=== PATIENT | male | born 1985 | race Caucasian/White ===

== ENCOUNTER → 2018-05-05 16:46 | Outpatient (CLI) | payer OTHER, SELFPAY ==
--- NOTE | 2018-05-05 16:50 | DI.RAD.S_ITS ---
PROCEDURE: XR SHOULDER RT MIN 2V INDICATIONS: right shoulder instability and pain s/p GLF TECHNIQUE: 3 views of the shoulder were acquired. COMPARISON: None. FINDINGS: Bones: No fractures or dislocations. No suspicious bony lesions. Visualized ribs appear intact. Soft tissues: No suspicious soft tissue calcifications. IMPRESSION: No fracture Dictated by: John Wolff M.D. on 05/05/2018 at 17:05 Approved by: John Wolff M.D. on 05/05/2018 at 17:06
== END ==
PROVIDERS: PCP Family Medicine; Visit Provider Physician Assistant
DX: S43.401A Unspecified sprain of right shoulder joint, initial encounter (principal); M25.511 Pain in right shoulder; M25.311 Other instability, right shoulder
CPT/HCPCS: 73030